=== PATIENT | female | born 1985 | race Caucasian/White ===

== ENCOUNTER → 2018-10-19 | Outpatient (CLI) | payer OTHER, SELFPAY ==
[2018-10-19 11:00] VITALS: BMI 29.8
[2018-10-19 11:43] LABS: Absolute Lymphocyte Count 2.01 X10^3/uL (0.83-4.51); Absolute Neutrophil Count 7.9 X10^3/uL (2.0-7.7); Basophil# 0.04 X10^3/uL; Basophil% 0.4 % (0-1); Eosinophil# 0.09 X10^3/uL; Eosinophils% 0.8 % (0-5); Hematocrit 37.1 % (37-47); Hemoglobin 12.7 g/dL (12.0-15.0); Lymphocyte # 2.01 X10^3/ul (4.0); Lymphocyte % 18.9 % (19-41); Mean Corp Hgb Conc 34.2 g/dL (32-36); Mean Corpuscular Hgb 31.5 pg (27.0-32.0); Mean Corpuscular Volume 92.1 fL (81-99); Mean Platelet Vol. 10.8 fl (6.2-12.0); Monocyte# 0.52 X10^3/uL; Monocyte% 4.9 % (0-10); NRBC Flagged by Analyzer 0 % (0-5); Neutrophil # 7.91 X10^3/uL (2.7-7.7); Neutrophil % 74.3 % (47-70); Platelet Count 216 K/mm3 (150-450); RBC Distribution Width CV 12.7 % (11.6-14.6); RBC Distribution Width SD 42.7 fl (35.1-43.9); Red Blood Count 4.03 M/mm3 (4.2-5.4); White Blood Count 10.6 K/mm3 (4.4-11.0)
[2018-10-19 12:46] LABS: HIV - WCH Non-Reactive (Nonreactive); Hepatitis B Surface Antigen Non-Reactive (Nonreactive); Rubella IgG 99.5 IU/mL
[2018-10-19 21:46] LABS: Chlamydia Trachomatis by PCR Negative (Negative); Neisserai gonorrhoeae by PCR Negative (Negative); Probe Check PASS; Sample Adequacy Control PASS; Specimen Processing Control PASS
[2018-10-21 04:46] LABS: Rapid Plasmin Reagin (RPR) NONREACTIVE (NONREACTIVE)
[2018-10-24 12:17] LABS: HPV APTIMA, High Risk Negative (Negative)
== END | disposition home or self-care (01) ==
PROVIDERS: Nurse Practitioner Women's Health; Family Provider Family Medicine; PCP Family Medicine; Referring Provider Obstetrics & Gynecology; Visit Provider Obstetrics & Gynecology
DX: Z34.90 Encounter for supervision of normal pregnancy, unspecified, unspecified trimester (principal); Z12.4 Encounter for screening for malignant neoplasm of cervix
CPT/HCPCS: 36415; 85025; 86592; 86703; 86762; 86850; 86900; 87086; 87088; 87340; 87491; 87591; 87624; 88175; G0145

== ENCOUNTER → 2018-11-02 12:18 | Outpatient (CLI) | payer OTHER, SELFPAY ==
[2018-10-19 10:07] VITALS: BMI 29.8
[2018-10-19 11:00] VITALS: BMI 29.8
--- NOTE | 2018-11-02 13:13 | NURSING ---
Patient scheduled for anatomy scan today. MICHAEL given by [facility] was 03/28/19 (19w1d). Patient arrived and gave MICHAEL of 04/25/19 (15w1d). Patient states MICHAEL was changed after in-office ultrasound by . I called office and spoke to Rabia. She states office error - MICHAEL never changed in computer. Office will update MICHAEL in patients chart and put in new order for anatomy scan. Patient to call scheduling and r/s. Patient upset d/t drove from [place] and took 1/2 day off work. I re-assured her there would be no charge for today.
== END ==
PROVIDERS: Family Provider Family Medicine; PCP Family Medicine; Referring Provider Nurse Practitioner Women's Health; Visit Provider Nurse Practitioner Women's Health
DX: Z34.90 Encounter for supervision of normal pregnancy, unspecified, unspecified trimester (principal)

== ENCOUNTER → 2018-12-16 13:21 | Outpatient (CLI) | payer OTHER, SELFPAY ==
[2018-11-18 13:37] VITALS: BMI 30.7
--- NOTE | 2018-12-16 13:25 | US_ITS ---
STUDY: SECOND AND THIRD TRIMESTER OBSTETRICAL ULTRASOUND REASON FOR EXAM: Female, 33 years old ANATOMY LMP: July 18, 2018 TECHNIQUE: Transabdominal TECHNICAL QUALITY: Adequate. PRIOR ULTRASOUND: None. FINDINGS: There is a single intrauterine fetus. The fetus is in a cephalic presentation. There is demonstrated cardiac activity with a heart rate of 137 bpm. There is a normal amniotic fluid volume. The largest amniotic fluid pocket measures 7.2 x 4.6 cm. The placenta is posterior in location and is not low lying. There are Grade 0 placental changes. The cervix measures 3.5 cm in length. The bilateral adnexal regions are normal. BIOMETRY: BPD: 5.03 cm: 21 weeks, 1 days HC: 18.51 cm: 20 weeks, 6 days AC: 15.74 cm: 20 weeks, 6 days FL: 3.34 cm: 20 weeks, 3 days CI: 82% FL/BPD: 66% FL/HC: 18.% FL/AC: 21% HC/AC: 1.18 age by current US: 20 weeks, 2 days. MICHAEL by current US: May 03, 2019. Estimated weight: 377 grams, +/- 57 grams, 13 %. Age by LMP: 21 weeks, 3 days. MICHAEL by LMP: April 25, 2019. ANATOMY: Male gender Cranium: Normal lateral ventricles. Normal choroid plexus. Normal cerebellum. Normal cisterna magna. Normal face, nose and lips. Chest: Normal 4-chamber heart. Abdomen/Pelvis: Normal diaphragm. Normal stomach. Normal abdominal wall. Normal cord insertion. Normal 3 vessel cord. Normal kidneys. Normal bladder. Spine: Normal cervical spine. Normal thoracic spine. Normal lumbar spine. Normal sacrum. Extremities: Normal bilateral upper extremities. Normal bilateral lower extremities. US/OB Anatomy Scan IMPRESSION: Live intrauterine gestation which by ultrasound as a age of 20 weeks 2 days with estimated date of delivery of May 03, 2019. No demonstrated abnormality. Electronically Signed: Aparna Antoine MD at 10:04 EDT , Service support ,
== END ==
PROVIDERS: Family Provider Family Medicine; PCP Family Medicine; Referring Provider Obstetrics & Gynecology; Visit Provider Obstetrics & Gynecology
DX: Z36.89 Encounter for other specified antenatal screening (principal)
CPT/HCPCS: 76805; 76817

== ENCOUNTER → 2019-02-03 13:17 | Outpatient (CLI) | payer OTHER, SELFPAY ==
[2019-02-03 13:02] VITALS: BMI 29.8
[2019-02-03 13:54] LABS: Absolute Neutrophil Count 8.1 X10^3/uL (2.0-7.7); Basophil# 0.02 X10^3/uL; Basophil% 0.2 % (0-1); Eosinophil# 0.06 X10^3/uL; Eosinophils% 0.6 % (0-5); Hematocrit 32.5 % (37-47); Hemoglobin 10.8 g/dL (12.0-15.0); Lymphocyte % 15.5 % (19-41); Mean Corp Hgb Conc 33.2 g/dL (32-36); Mean Corpuscular Hgb 31.8 pg (27.0-32.0); Mean Corpuscular Volume 95.6 fL (81-99); Mean Platelet Vol. 10.3 fl (6.2-12.0); Monocyte# 0.46 X10^3/uL; Monocyte% 4.4 % (0-10); NRBC Flagged by Analyzer 0 % (0-5); Neutrophil # 8.09 X10^3/uL (2.7-7.7); Neutrophil % 78.1 % (47-70); Platelet Count 167 K/mm3 (150-450); RBC Distribution Width SD 45.5 fl (35.1-43.9); White Blood Count 10.4 K/mm3 (4.4-11.0)
[2019-02-03 14:13] LABS: Glucose Challenge Gest 1H 50g 154 mg/dL (70-140)
== END ==
PROVIDERS: Family Provider Family Medicine; PCP Family Medicine; Referring Provider Obstetrics & Gynecology; Visit Provider Obstetrics & Gynecology
DX: Z34.80 Encounter for supervision of other normal pregnancy, unspecified trimester (principal)
CPT/HCPCS: 36415; 82950; 85025

== ENCOUNTER → 2019-03-06 09:29 | Outpatient (CLI) | payer OTHER, SELFPAY ==
[2019-02-03 13:02] VITALS: BMI 29.8
[2019-03-06 11:40] LABS: Glucose GTT-Gestational 1 Hr 172 mg/dL (<190)
[2019-03-06 11:47] LABS: Glucose GTT-Gestation. Fasting 71 mg/dL (<105)
[2019-03-06 12:45] LABS: Glucose GTT-Gestational 2 Hr 156 mg/dL (<165)
[2019-03-06 13:28] LABS: Glucose GTT-Gestational 3 Hr 118 L (<145)
== END ==
PROVIDERS: Family Provider Family Medicine; PCP Family Medicine; Referring Provider Obstetrics & Gynecology; Visit Provider Obstetrics & Gynecology
DX: R73.09 Other abnormal glucose (principal)
CPT/HCPCS: 36415; 82951; 82952

== ENCOUNTER → 2019-03-31 17:47 | Outpatient (CLI) | payer OTHER, SELFPAY ==
[2019-03-31 13:33] VITALS: BMI 29.8
== END ==
PROVIDERS: PCP Family Medicine; Visit Provider Obstetrics & Gynecology
DX: Z34.80 Encounter for supervision of other normal pregnancy, unspecified trimester (principal)
CPT/HCPCS: 87081

== ENCOUNTER 2019-04-30 07:00 | Inpatient (IN) | payer OTHER, SELFPAY ==
[2019-04-26 11:56] VITALS: BMI 29.8
--- NOTE | 2019-04-30 07:09 | HP.PCM_ITS ---
- Problem List (1) Abnormal glucose affecting Status: Acute Comment: 3 hr GTT normal (2) Anemia affecting Status: Acute Comment: FE added (3) Influenza vaccination declined Status: Acute Comment: declined on 12/16/18 (4) Status: Acute Qualifiers: Comment: nipt, carrier, and afp screening declined. Anatomy normal (5) Supervision of other normal , antepartum Status: Acute Comment: PRR MICHAEL: 04/25/19 boy PC: De La Cruz Spouse: Elbert (6) Tetanus, diphtheria, and acellular pertussis (Tdap) vaccination declined Status: Acute History and Physical Date of Admission: 04/30/19 Intake Vital Signs 04/26/19 BMI 29.8 04/26/19 Height 5 ft 4 in 04/26/19 Weight: 215 lb 04/26/19 BMI 36.8 04/26/19 BP 114/86 H Intake Visit Reasons: 39 WEEK OB Chief Complaint: est ob [employer] Required: No Is patient in pain?: No Allergies No Known Allergies Allergy (Verified 04/26/19 11:56) Medications Vits [Prenatabs FA] 1 tab PO DAILY 11/01/16 [History Confirmed 04/26/19] Last Menstral Period: 06/24/18 Zika: Zika virus screening: Negative : No PFSH PFSH Medical History History of anxiety (Acute) Surgical History History of wisdom tooth extraction, class II edentulism (Acute) Family History Unknown Diabetes Father Cancer kidney, lung-smoker Social History (Updated 04/26/19 @ 12:23 by Sary Green MD) Smoking Status: Former smoker alcohol intake: never substance use type: does not use caffeine: Yes what type of physical activity do you participate in: walking seatbelt use: always do you feel safe at home: Yes additional social history: Elbert-[employer] Patient is a front end software engineer Pregancy History 2 Elective abortions Hx Para 1 Spontaneous abortions Hx # Term Pregnancies Ectopic pregnancies Hx # Pregnancies Multiple births # of living children Past Pregnancies Del. Date Name GA/Weeks Outcome Route Bth Weight Gen Labor Lgth Anesthesia Del Locatn Provider FOB Unknown 2016 Jono live - full term 7lbs 6oz Male 10 hours epidural [facility] SM HPI 39 WEEK OB: Details: CARLOS RANKIN is a 34 year old who presents for routine OB visit. OB Visit MICHAEL Calculator Estimated Delivery Date Method Current WG Current Estimate 04/25/19 Ultrasound #1 40w 1d Other Estimates 03/28/19 LMP (Certain) 44w 1d Expected Delivery Route/Plan Labor Preferences- labor support person: Elbert pain management options preferred: epidural cut cord/dad catch: no : yes PP control planned: future vasectomy discussed possible routes of delivery and associated risks: [] special requests: [] Specific Issue/Plans flu vaccine:declined tdap vaccine: given rhogam: na LARC form signed: declined Problem list reviewed and updated with the most current plan of care details and appropriate orders placed. Relevant counseling for the gestational age provided. Continue routine care and follow up unless otherwise noted in visit notes/problem list details Initial Weight: 170 lb Date EGA Weight BP Urine Prot Glucose FHR FuHt Pres Dilation Effaced St Visit Note 11/18/18 17w 3d 179 lb 4 oz (+9 lb 4 oz) 122/74 Negative Negative 150 18 no vb lof anatomy us scheduled 12/16/18 21w 3d 185 lb (+15 lb) 124/62 Negative Negative 150 02/03/19 28w 3d 198 lb (+28 lb) 120/66 Negative Negative 150 no vb lof good fm no regular ctx cbc gct 03/16/19 34w 2d 205 lb 4 oz (+35 lb 4 oz) 115/70 Negative Negative 145 34 No V, LOF. Doing well 03/31/19 36w 3d 208 lb (+38 lb) 116/72 Negative Negative 140 36 SM- no vb lof good fm no regular ctx 04/07/19 37w 3d 208 lb 4 oz (+38 lb 4 oz) 112/65 140 37 SM- no vb lof good fm no regular ctx 04/14/19 38w 3d 212 lb 8 oz (+42 lb 8 oz) Negative Negative 140 39 Cephalic 1 SM- no vb lof good fm no reg ctx 04/26/19 40w 1d 215 lb (+45 lb) 114/86 Negative Negative 140 39 Cephalic 3 60 -2 SM- no vb lof good fm no regular ctx discussed IOL wednesday, membranes swept Notes Visit Date: 04/26/19 ??No visit notes to display Visit Date: 04/14/19 ??No visit notes to display Visit Date: 04/07/19 ??No visit notes to display Visit Date: 03/31/19 ??No visit notes to display Visit Date: 03/16/19 ??No visit notes to display Visit Date: 02/03/19 ??no vb lof good fm no regular ctx cbc gct ??Sary Green MD on 02/03/19 Visit Date: 12/16/18 ??No visit notes to display Visit Date: 11/18/18 ??no vb lof anatomy us scheduled ??Sary Green MD on 11/19/18 [facility] First Trimester First Trimester: Desire for , Anticipated Course of Care, Toxoplasmosis Precations, Use of Any medications, Sexual activity, Exercise, Sauna/Hot tub use, Seat Belt use, , Indications for US and Sc reening for Aneuploidy; discussed Alcohol, discussed Tobacco Cessation, discussed Illicit/Recreational Drug/Substance Use, discussed Intimate Partner Violence, discussed Unstable Housing or discussed Environmental/Work Hazards Second Trimester Second Trimester: Signs and Symptoms of Labor, Selecting a care provider, Reproductive Life Planning, Care Planning, Tobacco Cessation, Depression/Anxiety and Intimate Partner Violence Third Trimester Third Trimester: Pain Management Plans, Labor support person(s), Immediate Pos tpartum Larc, Movement Monitoring and Feeding Yes ; discussed Trial of Labor after Counseling or discussed Circumcision preference Diagnostics Diagnostics Diagnostics Blood Type O POSITIVE 10/19/18 Antibody Screen NEGATIVE 10/19/18 Gest Glucose Tolerance MG/DL 03/06/19 Glucose 1 Hr 50 gm 154 mg/dL (70-140) H 02/03/19 HIV 1&2 Antibody Non-Reactive (Nonreactive) 10/19/18 Rubella IgG Antibody 99.5 IU/mL 10/19/18 Hgb 10.8 g/dL (12.0-15.0) L 02/03/19 Hct 32.5 % (37-47) L 02/03/19 RPR NONREACTIVE (NONREACTIVE) 10/19/18 Details: HIV: Urine Culture: Sequential Screen: NIPT Screen: ROS Const Reports system reviewed and no additional complaints, except as docu Card Reports system reviewed and no additional complaints, except as docu Resp Reports system reviewed and no additional complaints, except as docu GI Reports system reviewed and no additional complaints, except as docu, Reports nausea Reports system reviewed and no additional complaints, except as docu Musc Reports system reviewed and no additional complaints, except as docu Exam Const General: cooperative, healthy appearing, comfortable, anxious HENMT Head: normal to inspection Nose: external nose normal Face and sinus: normal facial exam Neck Neck: normal visual inspection, full ROM, no lymphadenopathy Thyroid: thyroid normal Chest Chest palpation & inspection: normal inspection of the chest Resp Effort & Inspection: normal respiratory effort GI Inspection: normal to inspection Palpation: soft, other (gravid uterus) Other: infant vertex and appropriate size for gestational age Other: Cervical Exam: Extrem General: pedal edema Results POC Urinalysis 2 Dip (Clinic) Office Urine Glucose Negative Last Edit by Rebecca Zafar on 04/26/19 12:0 2 Office Urine Protein Negative Last Edit by Rebecca Zafar on 04/26/19 12:0 2 Assessment & Plan Problems 1. Anemia affecting O99.019 2. Abnormal glucose affecting O99.810 3. Tetanus, diphtheria, and acellular pertussis (Tdap) vaccination declined Z28.21 4. 40 weeks gestation of Z3A.40 5. Influenza vaccination declined Z28.21 6. Supervision of other normal , antepartum Z34.80 plan IOL for postdates plan pitocin epidural when desired Orders Orders: POC Urinalysis 2 Dip (Clinic) Today Coding Level of Care Code OB Routine Diagnoses Anemia affecting O99.019 Abnormal glucose affecting O99.810 Tetanus, diphtheria, and acellular pertussis (Tdap) vaccination declined Z28.21 40 weeks gestation of Z3A.40 ??Weeks of gestation: 40 weeks Influenza vaccination declined Z28.21 Supervision of other normal , antepartum Z34.80
[2019-04-30 07:34] VITALS: BMI 36.8
[2019-04-30] MEDS: Lactated Ringers 1,000 ML 50 ML IV (07:35)
[2019-04-30 07:59] LABS: Absolute Lymphocyte Count 1.66 X10^3/uL (0.83-4.51); Absolute Neutrophil Count 8.7 X10^3/uL (2.0-7.7); Basophil# 0.04 X10^3/uL; Basophil% 0.4 % (0-1); Eosinophil# 0.05 X10^3/uL; Eosinophils% 0.4 % (0-5); Hematocrit 31.2 % (37-47); Hemoglobin 10.3 g/dL (12.0-15.0); Lymphocyte # 1.66 X10^3/ul (4.0); Lymphocyte % 14.8 % (19-41); Mean Corpuscular Hgb 30.4 pg (27.0-32.0); Monocyte# 0.59 X10^3/uL; Monocyte% 5.3 % (0-10); NRBC Flagged by Analyzer 0 % (0-5); Neutrophil # 8.71 X10^3/uL (2.7-7.7); Neutrophil % 77.8 % (47-70); Platelet Count 165 K/mm3 (150-450); RBC Distribution Width CV 13.8 % (11.6-14.6); RBC Distribution Width SD 45.7 fl (35.1-43.9); Red Blood Count 3.39 M/mm3 (4.2-5.4); White Blood Count 11.2 K/mm3 (4.4-11.0)
[2019-04-30] MEDS: Oxytocin 30 units/NS 500 ml 30 UNITS/500 ML IV.SOLN IV (07:59)
--- NOTE | 2019-04-30 15:44 | OP.PCM_ITS ---
Problem List (1) Abnormal glucose affecting Status: Acute Comment: 3 hr GTT normal (2) Anemia affecting Status: Acute Comment: FE added (3) Influenza vaccination declined Status: Acute Comment: declined on 12/16/18 (4) Status: Acute Qualifiers: Comment: nipt, carrier, and afp screening declined. Anatomy normal (5) Supervision of other normal , antepartum Status: Acute Comment: PRR MICHAEL: 04/25/19 boy PC: Jono Spouse: Elbert (6) Tetanus, diphtheria, and acellular pertussis (Tdap) vaccination declined Status: Acute Vaginal Delivery Maternal Presentation: Medically Indicated Induction iol postdates and plan PPTL Method of Induction: Pitocin Medical Reason for Induction: Post term Amniotic Membrane Rupture Type: Artificial Amniotic Fluid Description: Clear Final MICHAEL: 04/25/19 Gestational age: 40 Weeks and 5 Days Date of Procedure: 04/30/19 Pre-Operative Diagnosis: iol postdate Post-Operative Diagnosis: same Surgery/ Procedure Performed: Spontaneous Vaginal Delivery Type of Anesthesia: None Description of Procedure: Patient began pushing and delivered the head in the [EDUARDO] presentation. The head was delivered atraumatically [and a loose nuchal cord ?1 was identified and easily reduced over the 's head]. The anterior and posterior shoulders delivered without complication followed by the rest of the infant and the infant was placed on the maternal abdomen. Delayed cord clamping was employed for approximately 60 seconds. Cord was clamped and cut and gentle traction was applied to the cord and the placenta delivered spontaneously immediately following it was noted to be intact with three-vessel cord. The perineum and vagina were inspected and [noted to have no laceration]. EBL was [100 cc]. Patient and tolerated delivery well. Placental Delivery Description: Spontaneous Medications given after delivery: IV Pitocin Complications: None Multi Select Codes - Urinary/Genital Urinary/Genital CPT Codes: 94390 Vaginal Delivery [facility]
[2019-04-30] MEDS: Oxytocin 30 units/NS 500 ml 30 UNITS/500 ML IV.SOLN 334 UNITS IV (18:04)
[2019-04-30 20:03] VITALS: BP 136/64; PULSE 84; RESP 16; TEMP 37; O2SAT 98
--- NOTE | 2019-04-30 21:10 | NURSING ---
This nurse helped this patient to the restroom, this patient was able to get to bathroom with little assistance from nurse and felt stable and moved well.
[2019-05-01] VITALS (10 sets, daily range): BP systolic 98–128; BP diastolic 57–69; PULSE 76–98; RESP 16–18; TEMP 36.3–37.2; O2SAT 99–100
--- NOTE | 2019-05-01 07:47 | PCM.PN.OB ---
Subjective: Doing well, no complaints.Pain controlled. Denies CP, SOB, N,V. Ambulating well, tolerating po/currently NPO for tubal ligation today. Lochia moderate, going well. - Physical Exam Vitals/I&O's: Vital Signs Temp Pulse Resp BP Pulse Ox 98.8 F 98 16 116/68 98 05/01/19 03:59 05/01/19 03:59 05/01/19 03:59 05/01/19 03:59 04/30/19 20:03 Oxygen Delivery Method Room Air Weight: 218 lb Body Mass Index (BMI) 36.8 Intake and Output for Last 24 Hours 04/29/19 04/30/19 05/01/19 23:59 23:59 23:59 Intake Total 1813.44 / 1813.44 500 / 500 Output Total 1300 / 1300 650 / 650 Balance 513.44 / 513.44 -150 / -150 General: Alert, Oriented x3 Abdomen: Soft, Non Tender, - - FF below U Laboratory Results 04/30/19 07:35: WBC 11.2 H, RBC 3.39 L, Hgb 10.3 L, Hct 31.2 L, MCV 92.0, MCH 30.4, MCHC 33.0, RDW Std Deviation 45.7 H, RDW Coeff of Jono 13.8, Plt Count 165, MPV 11.0, Immature Gran % (Auto) 1.300 H, Neut % (Auto) 77.8 H, Lymph % (Auto) 14.8 L, [place] % (Auto) 5.3, Eos % (Auto) 0.4, Baso % (Auto) 0.4, Absolute Neuts (auto) 8.7 H, Absolute Lymphs (auto) 1.66, Nucleated RBC % 0 04/30/19 07:35: Blood Type O POSITIVE, Antibody Screen NEGATIVE Current Medications Acetaminophen (Tylenol) 325 - 650 mg PO Q4H PRN PRN PRN Reason: Pain Score 1-3/10 Acetaminophen (Tylenol) 1,000 mg PO Q8H PRN PRN PRN Reason: Pain Score 1-3/10 Al Hydroxide/Mg Hydroxide (Mylanta Ii) 15 - 30 ml PO Q4H PRN PRN PRN Reason: INDIGESTION Bisacodyl (Dulcolax) 10 mg RECTAL UD PRN PRN Reason: If no BM Citric Acid/Sodium Citrate (Bicitra) 30 ml PO X1 PRN PRN Reason: Section Dibucaine (Dibucaine) 1 applic TOPICAL TID PRN PRN; Protocol PRN Reason: Discomfort Fentanyl Citrate (Sublimaze (100mcg Ampule)) 25 - 50 mcg IV Q2H PRN PRN PRN Reason: Pain Score 4-10/10 Hydrocortisone (Hytone) 1 applic TOPICAL TID PRN PRN; Protocol PRN Reason: Discomfort Lactated Ringer's () 500 mls @ 999 mls/hr IV .Q31M PRN PRN Reason: Epidural Lactated Ringer's () 500 mls @ 999 mls/hr IV .Q31M PRN PRN Reason: Corrective Measures Lactated Ringer's () 1,000 mls @ 50 mls/hr IV .Q20H [facility] Last Admin: 05/01/19 02:59 Dose: Not Given Documented by: Oxytocin/Sodium Chloride () 30 units in 500 mls @ 2 mls/hr IV .Q250H [facility] Last Infusion: 04/30/19 18:04 Dose: Infused Documented by: Methylergonovine Maleate (Methergine) 0.2 mg IM X1 PRN PRN Reason: Excess bleeding/uterine atony Naproxen (Naprosyn) 500 mg PO Q8H PRN PRN PRN Reason: Pain Score 1-3/10 Ondansetron HCl (Zofran) 4 mg IV Q4H PRN PRN PRN Reason: NAUSEA Ondansetron HCl (Zofran) 4 mg IV Q4H PRN PRN PRN Reason: Nausea Oxycodone HCl (Oxyir) 5 - 10 mg PO Q4H PRN PRN PRN Reason: Pain Score 4-10/10 Prochlorperazine Edisylate (Compazine Iv) 10 mg IV Q6H PRN PRN PRN Reason: NAUSEA Senna/Docusate Sodium (Senokot-S, Ananya-Colace) 1 - 2 tablet PO DAILY PRN PRN PRN Reason: Constipation Simethicone (Mylicon) 80 mg PO PCHS PRN PRN Reason: Indigestion/Stomach pain Sodium Chloride () 10 - 40 ml IV X1 PRN PRN Reason: SALINE FLUSH Sodium Chloride () 5 - 15 ml IV UD PRN PRN Reason: SALINE FLUSH Medical Necessity - Tobacco Use Smoking Status: Former smoker Tobacco Use: Non-smoker Assessment/Plan All Active Problems (Last Reviewed 04/26/19 @ 11:56 by Rebecca Zafar) Anemia affecting (Acute) Abnormal glucose affecting (Acute) Tetanus, diphtheria, and acellular pertussis (Tdap) vaccination declined (Acute) Influenza vaccination declined (Acute) Supervision of other normal , antepartum (Acute) (Acute) s/p PPD # 1 1. routine post delivery care 2. breast feeding- support given 3. rh positive 4. rubella immune 5. tubal ligation today 6. Plans home late [place]
--- NOTE | 2019-05-01 07:48 | DCINST_ITS ---
Additional Instructions: If you experience any of the following, contact your healthcare provider. * Bleeding that soaks a pad every hour for 2 hours * Fever 100.4 or higher * Unrelieved incision or abdominal pain * Swelling, redness, discharge or bleeding from your incision or episiotomy site * Your incision begins to separate * Problems urinating (including inability to urinate or burning while urinating). * Visual changes * Severe headache * Flu-like symptoms * Pain or redness in one of both of your breasts * Pain, warmth, tenderness or swelling in your legs, especially the calf area * Frequent nausea and vomiting * Symptoms of depression or anxiety If you experience any of the following, call 911 or go to the nearest Emergency Room. * Chest pain * Problems breathing * Seizure activity * Partial or complete paralysis of a body part, slurred speech, weakness or drooping of the face, or a sudden inability to walk or hold your balance Allergies/Adverse Reactions: Allergies No Known Allergies Allergy (Verified 04/30/19 07:35) verified 04/30 Medications to take at Discharge Vits [Prenatabs FA] 2 tab PO DAILY 11/01/16 DiphenhydrAMINE [Benadryl] 50 mg PO QHS 04/28/19 Iron Carbonyl [Feosol] 45 mg PO DAILYCM 04/28/19 Primary Care Physician: Irma Marinelli [Primary Care Provider] - Test Results: Test results from this visit will be discussed in further detail at your follow- up appointment, if applicable.
--- NOTE | 2019-05-01 07:48 | PCM.DCVAG ---
Additional Instructions: If you experience any of the following, contact your healthcare provider. Bleeding that soaks a pad every hour for 2 hours Fever 100.4 or higher Unrelieved incision or abdominal pain Swelling, redness, discharge or bleeding from your incision or episiotomy site Your incision begins to separate Problems urinating (including inability to urinate or burning while urinating). Visual changes Severe headache Flu-like symptoms Pain or redness in one of both of your breasts Pain, warmth, tenderness or swelling in your legs, especially the calf area Frequent nausea and vomiting Symptoms of depression or anxiety If you experience any of the following, call 911 or go to the nearest Emergency Room. Chest pain Problems breathing Seizure activity Partial or complete paralysis of a body part, slurred speech, weakness or drooping of the face, or a sudden inability to walk or hold your balance Allergies/Adverse Reactions: Allergies No Known Allergies Allergy (Verified 04/30/19 07:35) verified 04/30 Medications to take at Discharge Vits [Prenatabs FA] 2 tab PO DAILY 11/01/16 DiphenhydrAMINE [Benadryl] 50 mg PO QHS 04/28/19 Iron Carbonyl [Feosol] 45 mg PO DAILYCM 04/28/19 Primary Care Physician: Irma Marinelli [Primary Care Provider] - Test Results: Test results from this visit will be discussed in further detail at your follow-up appointment, if applicable.
[2019-05-01] MEDS: Lactated Ringers 1,000 ML 125 ML IV (10:42)
[2019-05-01] MEDS: 0.9% Saline Lock 10 ML Syringe IV (10:42)
--- NOTE | 2019-05-01 11:29 | PCM.OPRPT ---
Problem List (1) Abnormal glucose affecting Status: Acute Comment: 3 hr GTT normal (2) Anemia affecting Status: Acute Comment: FE added (3) Influenza vaccination declined Status: Acute Comment: declined on 12/16/18 (4) Status: Acute Qualifiers: Comment: nipt, carrier, and afp screening declined. Anatomy normal (5) Supervision of other normal , antepartum Status: Acute Comment: PRR MICHAEL: 04/25/19 boy PC: Jono Spouse: Elbert (6) Tetanus, diphtheria, and acellular pertussis (Tdap) vaccination declined Status: Acute Report of Operation Date of Procedure: 05/01/19 Pre-Operative Diagnosis: sterilization Post-Operative Diagnosis: same Surgery/Procedure Performed:: tubal ligation Description of Surgical Findings:: nl tubes Type of Anesthesia:: Spinal Special Medications: none Specimen's removed: none Drains: none Estimated Blood Loss (mL): minimal Fluids Replaced: c rystalloid Description of Procedure: Patient was taken to the operating room and spinal anesthesia was found to be adequate. Patient was placed in the dorsal supine position was prepped and draped in normal sterile fashion. Ambrose catheter was used to drain the bladder. Infra umbilical incision was made with a scalpel after injecting with marcaine and carried through the underlying layer of the fascia with a scalpel fascial incision was extended bilaterally with Easley scissors and bowel packed away and the right fallopian tube identified confirmed to be fallopian tube by following it out to the fimbria and a Filshie clip was applied in the mid interstitial portion of the fallopian tube noting to completely transect the tube. This was repeated on the left side where the tube was identified and followed out to the fimbria and confirmed to be fallopian tube and then the mid interstitial portion of the tube was completely transected with the Filshie clip. Excellent hemostasis was noted. Fascia was closed with 0 Vicryl and skin closed with 3-0 Monocryl. No complications. Patient was taken recovery in stable condition. Grafts/Implants Used: filshi clips - Complications none - Admit VTE Documentation VTE Present on Admission: No VTE Mechan Device Prophylaxis: SCD's Multi Select Codes - Urinary/Genital Urinary/Genital CPT Codes: 11466 PPTL
[2019-05-01] MEDS: Bupivacaine 0.25% 30 ML Vial (11:43)
[2019-05-01] MEDS: Senna/Docusate Sodium 1 Tablet PO (14:29)
[2019-05-01] MEDS: Acetaminophen 500 MG Tablet 1000 MG PO (14:30)
--- NOTE | 2019-05-01 22:30 | NURSING ---
Report given to Tracy MAC, taking over pt and infant care at this time.
[2019-05-02 02:11] VITALS: BP 97/66; PULSE 67; RESP 16; TEMP 37.2
--- NOTE | 2019-05-02 07:45 | PCM.PN.OB ---
Subjective: Doing well, no complaints.Pain controlled. Denies CP, SOB, N,V. Ambulating well, tolerating po. Lochia moderate, going well. Pain controlled post tubal ligation yesterday - Physical Exam Vitals/I&O's: Vital Signs Temp Pulse Resp BP Pulse Ox 98.9 F 67 16 97/66 99 05/02/19 02:11 05/02/19 02:11 05/02/19 02:11 05/02/19 02:11 05/01/19 12:50 Oxygen Delivery Method Room Air Weight: 218 lb Body Mass Index (BMI) 36.8 Intake and Output for Last 24 Hours 04/30/19 05/01/19 05/02/19 23:59 23:59 23:59 Intake Total 1813.44 / 1813.44 1037.5 / 1037.5 Output Total 1300 / 1300 650 / 650 Balance 513.44 / 513.44 387.5 / 387.5 General: Oriented x3 Abdomen: Soft, Non-Distended, - - FF below U, dressing dry and intact Current Medications Acetaminophen (Tylenol) 1,000 mg PO Q8H PRN PRN PRN Reason: Pain Score 1-3/10 Last Admin: 05/01/19 14:30 Dose: 1,000 mg Documented by: Al Hydroxide/Mg Hydroxide (Mylanta Ii) 15 - 30 ml PO Q4H PRN PRN PRN Reason: INDIGESTION Bisacodyl (Dulcolax) 10 mg RECTAL UD PRN PRN Reason: If no BM Dibucaine (Dibucaine) 1 applic TOPICAL TID PRN PRN; Protocol PRN Reason: Discomfort Hydrocortisone (Hytone) 1 applic TOPICAL TID PRN PRN; Protocol PRN Reason: Discomfort Methylergonovine Maleate (Methergine) 0.2 mg IM X1 PRN PRN Reason: Excess bleeding/uterine atony Naproxen (Naprosyn) 500 mg PO Q8H PRN PRN PRN Reason: Pain Score 1-3/10 Oxycodone HCl (Oxyir) 5 - 10 mg PO Q4H PRN PRN PRN Reason: Pain Score 4-10/10 Senna/Docusate Sodium (Senokot-S, Ananya-Colace) 1 - 2 tablet PO DAILY PRN PRN PRN Reason: Constipation Last Admin: 05/01/19 14:29 Dose: 2 tablet Documented by: Medical Necessity - Tobacco Use Smoking Status: Former smoker Tobacco Use: Non-smoker Assessment/Plan All Active Problems (Last Reviewed 04/26/19 @ 11:56 by Rebecca Zafar) Anemia affecting (Acute) Abnormal glucose affecting (Acute) Tetanus, diphtheria, and acellular pertussis (Tdap) vaccination declined (Acute) Influenza vaccination declined (Acute) Supervision of other normal , antepartum (Acute) (Acute) s/p PPD # 1 1. routine post delivery care 2. breast feeding- support given 3. rh positive 4. rubella immune 5. home today
[2019-05-02 07:53] VITALS: BP 117/66; PULSE 70; RESP 16; TEMP 36.6; O2SAT 96
== END 2019-05-02 11:35 | disposition home or self-care (01) | DRG 798 ==
PROVIDERS: Admitting Provider Obstetrics & Gynecology; PCP Family Medicine; Visit Provider Obstetrics & Gynecology
PROC: 0UL70ZZ Occlusion of Bilateral Fallopian Tubes, Open Approach (ICD-10-PCS; principal; 2019-05-01 11:45)
DX: O75.89 Other specified complications of labor and delivery (principal); Z37.0 Single live birth; O48.0 Post-term pregnancy; D64.9 Anemia, unspecified; O99.02 Anemia complicating childbirth; O69.81X0 Labor and delivery complicated by cord around neck, without compression, not applicable or unspecified; Z3A.40 40 weeks gestation of pregnancy; Z87.891 Personal history of nicotine dependence; Z30.2 Encounter for sterilization
CPT/HCPCS: 59025; 59050; 85025; 86850; 86900; 86901; 99218; J7120; A4216; G0378